=== PATIENT | male | born 1980 | race Caucasian/White ===

== ENCOUNTER 2016-09-22 11:25 | Emergency (ER) | payer OTHER ==
[~2016-09-22 11:25] MED LIST: ACID CONTROL20 MG PO; CEPHALEXIN MON500 MG NG; IBUPROFEN800 M1 PO; KEFLEX500 M3 PO; MAGIC MOUTHWASH; MYLANTA PO; NEXIUM20 MG PO; REGLAN10 M1 PO; ZOFRAN8 MG PO
[2016-09-22 12:17] LABS: BASO % 0.2 % (0-2); EOS % 0.4 % (0-7); HCT-HEMATOCRIT 41.8 % (36.0-53.5); HGB-HEMOGLOBIN 14.3 gm/dl (13.5-17.0); LYMPH ABSOLUTE COUNT 0.6 tho/cmm (0.8-4.5); MCH (MEAN CORPUSCULAR HGB) 32.4 pg (28.0-32.0); MCHC MEAN CORPUSCULAR HGB CONC 34.2 % (32.0-36.0); MCV (MEAN CELL VOLUME) 94.8 fl (82.0-96.0); MEAN PLATELET VOLUME 10.2 cmc (9.4-12.4); MONO % 9.1 % (0-12); MONOCYTE ABSOLUTE COUNT 0.5 tho/cmm (0.0-1.2); NEUTROPHIL ABSOLUTE COUNT 3.8 tho/cmm (1.6-8.0); NEUTROPHIL-AUTOMATED 3.8 tho/cmm (1.6-8.0); NEUTROPHILS % 77.3 % (40-80); PLATELET COUNT 116 tho/cmm (150-450); RED BLOOD COUNT 4.41 mil/cmm (4.40-5.70); RED CELL DISTRIBUTION WIDTH 13.6 % (12.4-16.4); WHITE BLOOD COUNT 4.9 tho/cmm (4.0-10.0)
[2016-09-22 12:32] LABS: ALBUMIN 3.9 g/dl (3.5-5.0); ALCOHOL (ETOH) <10 mg/dl (<10); ALKALINE PHOSPHATASE 69 U/L (33-138); ALT/SGPT 73 U/L (12-78); ANION GAP 16 mmol/L (0-20); AST/SGOT 62 U/L (10-40); BILIRUBIN,TOTAL 0.9 mg/dl (0.0-1.5); BLOOD UREA NITROGEN 9 mg/dl (6-24); CALCIUM 9.4 mg/dl (8.5-10.5); CARBON DIOXIDE-VENOUS 24 mmol/L (22-32); CHLORIDE 102 mmol/l (96-110); CREATININE 1.33 mg/dl (0.60-1.30); GLUCOSE 142 mg/dL (70-110); LIPASE 328 U/L (73-393); POTASSIUM 3.8 mmol/L (3.7-5.1); SODIUM 138 mmol/L (135-145); eGFR VALUE FOR BLACK 80 mL/Min
[2016-09-22 12:57] LABS: URINE BILIRUBIN NEGATIVE (NEG); URINE BLOOD MODERATE (NEG); URINE GLUCOSE (UA) NEGATIVE (NEG); URINE KETONE NEGATIVE (NEG); URINE LEUKOCYTE ESTERASE POSITIVE (NEG); URINE NITRITE NEGATIVE (NEG); URINE PH 6.5 (5.0-8.0); URINE PROTEIN MODERATE (NEG); URINE SPECIFIC GRAVITY 1.015 (1.003-1.030)
[2016-09-22 12:59] LABS: URINE COLOR YELLOW
[2016-09-22 13:09] LABS: URINE APPEARANCE HAZY
[2016-09-22 13:16] LABS: URINE EPITHELIAL CELLS 30-40 /[HPF] (0-10)
[2016-09-22 13:17] LABS: URINE AMORPHOUS 2+; URINE BACTERIA 1+; URINE MUCUS 3+
== END 2016-09-22 14:01 ==
LOC: EDMED 11:25
PROVIDERS: Emergency Medicine
DX: T67.9XXA Effect of heat and light, unspecified, initial encounter (principal); R55 Syncope and collapse; E86.0 Dehydration; F17.210 Nicotine dependence, cigarettes, uncomplicated
CPT/HCPCS: G0480; J2060; J7030